=== PATIENT | female | born 1940 | race Caucasian/White ===

== ENCOUNTER 2018-07-29 12:54 | Outpatient (CLI) | payer MEDICARE | END 2018-07-29 12:55 | disposition home or self-care (01) | LOC: BICMAMMO 12:54 | PROVIDERS: ATTEND Clinical Nurse Specialist Medical-Surgical | DX: Z12.31 Encounter for screening mammogram for malignant neoplasm of breast (principal); M81.0 Age-related osteoporosis without current pathological fracture | CPT/HCPCS: 77063; 77067; 77080 ==

== ENCOUNTER 2019-03-28 09:41 | Outpatient (CLI) | payer MEDICARE ==
--- NOTE | 2019-03-28 11:16 | CT ---
EXAM: Abdomen and pelvic CT scan with contrast: HISTORY: Chronic diarrhea, weight loss, syncope COMPARISON: None FINDINGS: Minimal linear streaky changes particularly in the right base with some poorly defined faint nodules up to 0.5 cm in the right lower lobe, nonspecific. Liver: Unremarkable. Gallbladder:Unremarkable. Pancreas:Unremarkable Spleen:Unremarkable. Adrenal glands:Unremarkable. Kidneys:Nonobstructing bilateral renal calculi.Bilateral renal hypodensities statistically small cyst not completely characterized because of their small size. No evidence for bowel obstruction. Numerous diverticulosis changes within the sigmoid colon Possible 0.3 cm diameter calculus within the urinary bladder versus a punctate calcification within t he posterior bladder wall. No CT evidence for acute appendicitis. No abscess, adenopathy, or abnormal fluid collection within the abdomen or pelvis. IMPRESSION: Nonobstructing bilateral renal calculi and probable bilateral renal cysts. Probable small calculus in the bladder versus a calcific focus in the bladder wall. Sigmoid colon diverticulosis without acute diverticulitis. Small hiatal hernia.
[2019-03-28] MEDS ORDERED: Iopamidol 370 76% 100 ML VIAL ONE (13:40)
== END 2019-03-28 09:42 | disposition home or self-care (01) ==
LOC: BICCT 09:41
PROVIDERS: ATTEND Physician Assistant Medical
DX: K52.9 Noninfective gastroenteritis and colitis, unspecified (principal); R63.4 Abnormal weight loss; R55 Syncope and collapse; N20.0 Calculus of kidney; K57.30 Diverticulosis of large intestine without perforation or abscess without bleeding; K44.9 Diaphragmatic hernia without obstruction or gangrene
CPT/HCPCS: 74177; 82565; Q9967

== ENCOUNTER 2019-11-03 06:34 | Outpatient (CLI) | payer MEDICARE ==
[2019-11-03 12:26] VITALS: BMI 24.5
[2019-11-03 14:11] LABS: #Basophils 0.1 thou/uL (0.0-0.2); #Eosinphils 0.3 thou/uL (0.0-0.7); #Lymphocytes 2.7 thou/uL (1.20-3.40); #Monocytes 0.8 thou/uL (0.11-0.59); #Neutrophils 5.3 thou/uL (1.40-6.50); %Basophils 0.9 % (0.0-1.0); %Eosinophils 2.8 % (0.0-10.0); %Lymphocytes 29.4 % (21.0-51.0); %Monocytes 8.8 % (0.0-10.0); %Neutrophils 58.1 % (42.0-75.0); Mean Corpuscular HGB CONC 31.7 g/dL (32.0-36.0); Mean Corpuscular Hemoglobin 31.2 pg (27.0-31.0); Mean Corpuscular Volume 98.4 fL (78.0-98.0); Mean Platelet Volume 8.5 fL (7.4-10.4); Platelet Count 397 thou/uL (130-400); RBC Distribution Width 12.3 % (11.5-14.5); Red Blood Cell (RBC) Count 3.85 mill/uL (4.20-5.40); White Blood Cell (WBC) Count 9.1 thou/uL (4.8-10.8)
[2019-11-03 14:15] LABS: INR-International Normal Ratio 0.9; Prothrombin Time 12.2 SEC (12.0-14.7)
[2019-11-03 14:26] LABS: Bacteria/HPF 2+ HPF (None Seen); Bilirubin Negative (Negative); Blood, Urine Negative (Negative); Clarity Turbid (Clear); Glucose, Urine (Dipstick) Normal (Negative); Leukocyte 250 Leu/uL (Negative); Nitrite Negative (Negative); Protein, Urine (Dipstick) 10 mg/dL (Neg-Trace); Urobilinogen Normal mg/dL (Less than 2)
[2019-11-03 14:35] LABS: Anion Gap 14 mmol/L (10-20); BUN (Urea Nitrogen) 8 mg/dL (9.8-20.1); Calc. Creatinine Clearance 60 mL/min (70-130); Calcium 9.3 mg/dL (7.8-10.44); Carbon Dioxide 22 mmol/L (23-31); Chloride 107 mmol/L (98-107); Estimated GFR-MDRD 77; Glucose 99 mg/dL (83-110); Potassium 3.5 mmol/L (3.5-5.1); Sodium 139 mmol/L (136-145)
[2019-11-03 14:57] LABS: RBC/HPF None Seen HPF (0-3)
--- NOTE | 2019-11-04 17:57 | EKG ---
Test Reason : Blood Pressure : / mmHG Vent. Rate : 071 BPM Atrial Rate : 071 BPM P-R Int : 168 ms QRS Dur : 078 ms QT Int : 424 ms P-R-T Axes : 066 -02 038 degrees QTc Int : 460 ms Normal sinus rhythm Normal ECG No previous ECGs available Confirmed by Charmaine MILLER ([id number]) on 11/04/2019 5:56:40 PM Referred By: VIKAS Confirmed By:Charmaine MILLER
== END 2019-11-03 06:35 | disposition home or self-care (01) ==
LOC: LABBT 06:34
PROVIDERS: ATTEND Orthopaedic Surgery
DX: Z01.818 Encounter for other preprocedural examination (principal); M17.9 Osteoarthritis of knee, unspecified
CPT/HCPCS: 80048; 81001; 85025; 85610; 87081; 93005; 93010

== ENCOUNTER 2019-11-08 05:15 | Day surgery (SDC) | payer MEDICARE ==
[2019-11-08] MEDS ORDERED: Tranexamic Acid 1,000 MG/10 ML VIAL ONE (05:52)
[2019-11-08] MEDS ORDERED: Sodium Chloride 0.9% 100 ML ONE (05:52)
[2019-11-08] MEDS ORDERED: Fentanyl 100 MCG/2 ML VIAL ONE ×3 (06:07→09:13)
[2019-11-08] MEDS ORDERED: Midazolam HCl 2 mg/2 ml Vial ONE (06:16)
[2019-11-08] MEDS ORDERED: Lidocaine 1% (PF) 30 ML VIAL ONE (06:26)
[2019-11-08] MEDS ORDERED: Lidocaine 1% w/Epinephrine 1:100K 20 ML VIAL ONE (06:32)
[2019-11-08] MEDS ORDERED: Bupivacaine 0.25% HCL 30 ML VIAL ONE (06:38)
[2019-11-08] MEDS ORDERED: Levofloxacin 500 mg/D5W 100 ml Premix Bag ONE (06:54)
[2019-11-08] MEDS ORDERED: Ropivacaine HCl/PF 250 ML in Premix Bag 1 BAG NERVE BLCK SCH (07:13)
[2019-11-08] MEDS ORDERED: traMADol HCl 50 MG TAB PO PRN ×3 (07:13→10:39)
[2019-11-08] MEDS ORDERED: Fentanyl 100 MCG/2 ML VIAL SLOW IVP PRN ×3 (07:13→10:39)
[2019-11-08] MEDS ORDERED: Zolpidem Tartrate 5 MG TAB PO PRN ×2 (07:13→10:39)
[2019-11-08] MEDS ORDERED: Ondansetron PF 4 MG/2 ML Vial IVP PRN ×2 (07:13→10:39)
[2019-11-08] MEDS ORDERED: Promethazine HCl 25 MG/ML VIAL IM PRN ×2 (07:13→10:39)
[2019-11-08] MEDS ORDERED: Phenylephrine HCL 10 MG/ML VIAL ONE (07:39)
[2019-11-08 08:19] LABS: Bacteria/HPF None Seen HPF (None Seen); Bilirubin Negative (Negative); Blood, Urine Negative (Negative); Clarity Clear (Clear); Glucose, Urine (Dipstick) Normal (Negative); Leukocyte Negative Leu/uL (Negative); Nitrite Negative (Negative); Protein, Urine (Dipstick) Negative (Neg-Trace); RBC/HPF 0-3 HPF (0-3); Squamous Epithelial None Seen HPF (0-3); Urobilinogen Normal mg/dL (Less than 2); WBC/HPF 0-3 HPF (0-3)
[2019-11-08] MEDS ORDERED: Dexamethasone 20 MG/5 ML VIAL ONE (09:25)
[2019-11-08] MEDS ORDERED: Ondansetron PF 4 MG/2 ML Vial ONE (09:25)
[2019-11-08] MEDS ORDERED: EPINEPHrine 1 MG/ML AMP ONE (09:25)
[2019-11-08] MEDS ORDERED: ePHEDrine/0.9% NaCl/PF SYRINGE 50 mg/10 ml ONE (09:25)
[2019-11-08] MEDS ORDERED: PROPOFOL 200 MG/20 ML VIAL ONE (09:25)
[2019-11-08] MEDS ORDERED: Ropivacaine 0.2% HCl/PF (40 MG/20 ML VIAL) ONE (09:25)
[2019-11-08] MEDS ORDERED: PHENYLEPHRINE-NS 100 MCG/ML 10 ML SYRINGE ONE (09:25)
[2019-11-08] MEDS ORDERED: Ropivacaine 0.5% HCl/PF (150 MG/30 ML VIAL) ONE (09:25)
[2019-11-08] MEDS ORDERED: Lidocaine 1% PF 5 ML VIAL ONE (09:25)
[2019-11-08] MEDS ORDERED: Glycopyrrolate 0.2 MG/ML 5 ML SYRINGE ONE (09:25)
[2019-11-08] MEDS ORDERED: HYDROcodone/Acetaminophen 10/325 mg Tablet PO PRN ×2 (10:39)
[2019-11-08] MEDS ORDERED: diphenhydrAMINE 25 MG CAP PO PRN (10:39)
[2019-11-08] MEDS ORDERED: Acetaminophen 325 MG TAB PO PRN (10:39)
[2019-11-08] MEDS ORDERED: Aspirin 81 mg Enteric Coated Tablet PO SCH (10:45)
--- NOTE | 2019-11-08 11:08 | RAD ---
RIGHT KNEE TWO VIEWS: HISTORY: Total knee postop. FINDINGS: There are recent postop changes of total knee arthroplasty in good position and alignment. Soft tissu e air is present. POS: H
[2019-11-08] MEDS: HYDROcodone/Acetaminophen 10/325 mg Tablet PO PRN (11:37)
[2019-11-08 11:59] VITALS: BMI 24.5
[2019-11-08] MEDS ORDERED: Ketorolac Tromethamine 30 MG/ML VIAL IVP SCH (12:00)
--- NOTE | 2019-11-08 13:53 | OP ---
DATE OF PROCEDURE: 11/08/2019 PREOPERATIVE DIAGNOSIS: Right knee osteoarthritis. POSTOPERATIVE DIAGNOSIS: Right knee osteoarthritis. PROCEDURE PERFORMED: Right total knee arthroplasty. LAWYER PROBATE: Jer Velarde. ANESTHESIOLOGIST: Dr. Carlos. ANESTHESIA: The patient received LMA, single-shot sciatic, adductor canal. ESTIMATED BLOOD LOSS: Less than 100 mL. TOURNIQUET TIME: 63 minutes at 300 mmHg. ANTIBIOTICS: Ancef 2 g, vancomycin 1 g, Levaquin 500. The patient received TXA 1 g. IMPLANTS: [place] [employer] size 3 femur size 2 tibia 9 CS poly and A27 patella. COMPLICATIONS: None. HISTORY OF PRESENT ILLNESS: Ms. Randall is a 79-year-old female, who presented with right knee osteoarthritis. Discussed with the patient the risks and benefits of right total knee arthroplasty including pain, scar, bleeding, infection, damage to vital structures, decreased range of motion and strength, need for further surgery, failure of procedure, continued pain despite surgical intervention, loss of life or limb. The patient understood the risks and benefits of procedure and elected to proceed. DESCRIPTION OF PROCEDURE: Time-out was performed designating the patient's right lower extremity as the operative site based on site, consents, and marking. After time-out, the patient's right lower extremity was prepped and draped in sterile fashion. Tourniquet was brought up and left for 63 minutes. Anterior midline approach, medial arthrotomy was performed, came down, mapped out the distal femur, cut at 9 and 9, 4 degrees anterior slope. We then placed our 3 degree external rotation, guidepin into position. We saw the match about 3 for a perfect fit. We liked overall alignment and fit. Therefore, we cut a size 3 for 3 block cut, size 3 distal femur. We then moved, removing all the osteophytes, placed pickle fork position, exposed the distal tibia. We cut varus 0 , 4 deg of slope 2 and 6 and ultimately went to 4 and 8. We placed laminar dental insurance biller, decompressed the PCL , ensured that osteophytes removed, placed our tray. We had a little bit tight in flexion and extension when we placed our femur tray, therefore we removed to 2 more mm, pinned it in position, liked the overall flexion-extension, everted the patella, it was 20 mm, cut down to about 11 mm, cemented A27 patella. We then drilled our holes for femur, removed all implants. We opened up, cut the keel for the tibia. There was a little area when we were in putting our implant, they got dug by one of our instruments, which we filled with cement . We removed all implants. We then placed our cement. We placed our size 2 tibia, cemented in place, placed our poly, removed excess cement. We placed our cement of the femur and removed excess cement, everted and cemented our patella, removed excess cement washed. We closed the arthrotomy with #2 Vicryl, 2 Quill, #2 Stratafix, 0 Stratafix, 2-0 Stratafix, and glue. The patient will be weightbearing as tolerated. Follow [facility]'s protocol, received preop antibiotics. Job ID: [id number] MTDD
[2019-11-08] MEDS: CEFAZOLIN 2 GM in Premix Bag 1 BAG IVPB SCH ×2 (14:33→22:02)
--- NOTE | 2019-11-08 17:36 | PDOC.HHP ---
Hospitalist HPI - History of Present Illness Right knee pain History of Present Illness: 79 YO F with a PMH of HTN, HLD and DJD who has been experiencing pain and difficulty walking with her right leg. She had gone to see the Ortho Dr who stated she was 'bone on bone' and recommended a knee replacement sx. Pt was scheduled to have a right TKR today. She was seen post her procedure as a consultation for med mgt and currently has no complaints. Hospitalist ROS - Review of Systems Constitutional: denies: fever, chills, sweats, weakness, malaise, other Eyes: denies: pain, vision change, conjunctivae inflammation, eyelid inflammation, redness, other ENT: denies: ear pain, ear discharge, nose pain, nose discharge, nose congestion , mouth pain, mouth swelling, throat pain, throat swelling, other Respiratory: denies: cough, dry, shortness of breath, hemoptysis, SOB with excertion, pleuritic pain, sputum, wheezing, other Cardiovascular: denies: chest pain, palpitations, orthopnea, paroxysmal noc. dyspnea, edema, light headedness, other Gastrointestinal: denies: nausea, vomiting, abdominal pain, diarrhea, constipation, melena, hematochezia, other Genitourinary: denies: dysuria, frequency, incontinence, hematuria, retention, other Musculoskeletal: denies: neck pain, shoulder pain, arm pain, back pain, hand pain, leg pain, foot pain, other Skin: denies: rash, lesions, gaston, bruising, other Neurological: denies: weakness, numbness, incoordination, change in speech, confusion, seizures, other - Medication Medications: Active Medications Generic Name Dose Route Start Last Admin Trade Name Freq PRN Reason Stop Dose Admin Hydrocodone Bitart/Acetaminophen 1 tab 11/08/19 07:13 11/08/19 11:37 [place] 10/325 PO 1 tab Q4H PRN Administration Pain (1-3) Cefazolin Sodium/Dextrose 2 gm 50 mls @ 100 mls/hr 11/08/19 14:00 11/08/19 14 :33 / Device IVPB 11/08/19 22:29 50 mls Q8HR BRITTA Administration Hospitalist History - Past Medical History Cardiac: reports: HTN, Hyperlipidemia - Past Surgical History Past Surgical History: reports: Total Knee Replacement - Social History Alcohol: reports: None Living Situation: Alone, With Family Activity level: independent ambulation - Exam General Appearance: NAD, awake alert Eye: PERRL, anicteric sclera ENT: normocephalic atraumatic, no oropharyngeal lesions, moist mucosa Neck: supple, symmetric, no JVD, no thyromegaly, no lymphadenopathy, no carotid bruit Heart: RRR, no murmur, no gallops, no rubs, normal peripheral pulses Respiratory: CTAB, no wheezes, no rales, no ronchi, normal chest expansion, no tachypnea, normal percussion Gastrointestinal: soft, non-tender, non-distended, normal bowel sounds, no palpable masses, no hepatomegaly, no splenomegaly, no bruit Extremities: no cyanosis, no clubbing, no edema Skin: normal turgor, no lesions, no rashes Neurological: cranial nerve grossly intact, normal sensation to touch, no weakness, no focal deficits, no new deficit Musculoskeletal: normal tone, normal strength, no muscle wasting Musculoskeletal - other findings: Dressing over right knee. Psychiatric: normal affect, normal behavior, A&O x 3 Hospitalist Results - Labs Lab results: Urine Ketones Negative mg/dL (Negative) 11/08/19 07:25 Urine Blood Negative (Negative) 11/08/19 07:25 Urine Nitrite Negative (Negative) 11/08/19 07:25 Ur Leukocyte Esterase Negative Robert/uL (Negative) 11/08/19 07:25 Urine RBC 0-3 HPF (0-3) 11/08/19 07:25 Urine WBC 0-3 HPF (0-3) 11/08/19 07:25 Ur Squamous Epith Cells None Seen HPF (0-3) 11/08/19 07:25 Urine Bacteria None Seen HPF (None Seen) 11/08/19 07:25 Hospitalist H&P A/P - Problem (1) Total knee replacement status Code(s): Z96.659 - PRESENCE OF UNSPECIFIED ARTIFICIAL KNEE JOINT Status: Acute Qualifiers: Laterality: right Qualified Code(s): Z96.651 - Presence of right artificial knee joint Assessment and Plan: Pt is s/p right TKA and is stable. Will f/u with PT and further Ortho orders. Control pain. (2) HTN (hypertension), benign Code(s): I10 - ESSENTIAL (PRIMARY) HYPERTENSION Status: Acute Assessment and Plan: Controlled. Will resume home BP meds. Monitor BP. (3) HLD (hyperlipidemia) Code(s): E78.5 - HYPERLIPIDEMIA, UNSPECIFIED Status: Acute Assessment and Plan: Stable. Cont statins. - Plan Plan: PPx: Lovenox. CODE status: Full. Dispo: Cont current mgt. Thanks for the consult, we will follow.
[2019-11-08] MEDS ORDERED: Vancomycin HCl 1 GM in Premix Bag 1 BAG IVPB SCH (20:00)
[2019-11-08] MEDS: Dextrose 5 %-0.45 % NaCl 1,000 ML IV SCH ×2 (20:25→22:03)
[2019-11-08] MEDS: Aspirin 81 mg Enteric Coated Tablet PO SCH (20:26)
[2019-11-08] MEDS: Atorvastatin Calcium 20 MG TAB PO SCH (20:26)
[2019-11-08] MEDS ORDERED: Atorvastatin Calcium 20 MG TAB PO SCH (21:00)
[2019-11-08] MEDS ORDERED: Non-Formulary Item 1 EACH (Trazodone Hcl [Trazodone Hcl] 1 TAB) PO SCH (21:00)
[2019-11-08] MEDS ORDERED: traZODone HCl 50 MG TAB PO SCH (21:00)
[2019-11-08] MEDS: traZODone HCl 50 MG TAB PO SCH (22:02)
[2019-11-09] MEDS: HYDROcodone/Acetaminophen 10/325 mg Tablet PO PRN ×2 (02:20→20:56)
[2019-11-09 08:32] LABS: Hemoglobin 10.3 g/dL (12.0-16.0); Mean Corpuscular HGB CONC 31.9 g/dL (32.0-36.0); Mean Corpuscular Hemoglobin 31.2 pg (27.0-31.0); Mean Corpuscular Volume 97.8 fL (78.0-98.0); Mean Platelet Volume 8.3 fL (7.4-10.4); Platelet Count 322 thou/uL (130-400); RBC Distribution Width 12.2 % (11.5-14.5); Red Blood Cell (RBC) Count 3.29 mill/uL (4.20-5.40); White Blood Cell (WBC) Count 10.9 thou/uL (4.8-10.8)
[2019-11-09] MEDS ORDERED: Lisinopril/Hydrochlorothiazide 20/25 mg Tablet PO SCH (09:00)
[2019-11-09] MEDS ORDERED: Atenolol 25 MG TAB PO SCH (09:00)
[2019-11-09] MEDS ORDERED: Non-Formulary Item 1 EACH (Fenofibrate [Fenofibrate] 1 TAB) PO SCH (09:00)
[2019-11-09] MEDS ORDERED: Amlodipine 5 MG TAB PO SCH (09:00)
[2019-11-09] MEDS ORDERED: Aspirin Chewable 81 MG TAB PO SCH (09:00)
[2019-11-09] MEDS ORDERED: Bupropion 150 MG XL TAB PO SCH (09:00)
[2019-11-09] MEDS: Atenolol 25 MG TAB PO SCH (09:32)
[2019-11-09] MEDS: Amlodipine 10 MG TAB PO SCH ×2 (09:32→16:15)
[2019-11-09] MEDS: Bupropion 150 MG XL TAB PO SCH (09:32)
[2019-11-09] MEDS: Ferrous Gluconate 324 MG TAB PO SCH ×2 (09:33→18:05)
[2019-11-09] MEDS: Dextrose 5 %-0.45 % NaCl 1,000 ML IV SCH ×2 (09:33→19:34)
[2019-11-09] MEDS: Multivitamin W/ Minerals 1 TAB PO SCH (09:34)
[2019-11-09] MEDS: Aspirin 81 mg Enteric Coated Tablet PO SCH ×2 (09:34→20:59)
[2019-11-09] MEDS: Lisinopril/Hydrochlorothiazide 20/25 mg Tablet PO SCH (09:34)
[2019-11-09] MEDS: Senokot S 8.6-50 MG TAB PO SCH ×2 (09:35→20:59)
--- NOTE | 2019-11-09 15:21 | PRG ---
DATE OF SERVICE: 11/09/2019 SUBJECTIVE: The patient is seen and examined at bedside. She does not have much complaints to offer. Her pain is under good control. She did her PT session. OBJECTIVE: VITAL SIGNS: Blood pressure is 116/68, pulse is 71, temperature is 97.9, respirations 18, and O2 saturation is 100% on 2 L by nasal cannula. HEENT: Head is atraumatic and normocephalic. Sclerae are nonicteric. LUNGS: Clear. HEART: S1 and S2 normal. No S3. No S4. ABDOMEN: Soft and nontender. EXTREMITIES: The right knee with small dressing on the top of the knee with mild swelling around the area. NEUROLOGIC: She is alert and oriented x4. There is no any sensory or motor deficits present. Cranial nerves are intact. LABORATORY DATA: White count of 10.9, hemoglobin 10.3, hematocrit 32.2, and platelet count is 322,000. IMPRESSION: 1. Hypertension, well controlled. 2. Status post total knee replacement on the right side. 3. Hyperlipidemia. PLAN: Plan is to continue current regimen with; 1. Aspirin 81 mg twice a day. 2. Amlodipine 10 mg once a day. 3. Atenolol 25 mg daily. 4. Atorvastatin 20 mg at bedtime. 5. Bupropion 150 mg daily. 6. Fenofibrate 145 mg daily. 7. Ferrous gluconate 324 mg twice a day. 8. Hydrocodone bitartrate/APAP 1 to 2 tablets q.4 hours p.r.n. as needed. 9. Lisinopril/hydrochlorothiazide one a day. 10. Multivitamin one a day. 11. Zolpidem 5 mg at bedtime as needed. Job ID: [id number]
[2019-11-09] MEDS: Fenofibrate Nanocrystallized 145 MG TAB PO SCH (16:15)
[2019-11-09] MEDS: traZODone HCl 50 MG TAB PO SCH (20:59)
[2019-11-09] MEDS: Atorvastatin Calcium 20 MG TAB PO SCH (20:59)
[2019-11-10] MEDS: HYDROcodone/Acetaminophen 10/325 mg Tablet PO PRN ×2 (03:27→09:26)
[2019-11-10] MEDS: Dextrose 5 %-0.45 % NaCl 1,000 ML IV SCH ×2 (03:28→16:49)
[2019-11-10 06:16] LABS: Mean Corpuscular HGB CONC 31.9 g/dL (32.0-36.0); Mean Corpuscular Volume 97.3 fL (78.0-98.0); Mean Platelet Volume 8.5 fL (7.4-10.4); Platelet Count 290 thou/uL (130-400); RBC Distribution Width 12.3 % (11.5-14.5); Red Blood Cell (RBC) Count 3.22 mill/uL (4.20-5.40)
[2019-11-10] MEDS: Ferrous Gluconate 324 MG TAB PO SCH (08:37)
[2019-11-10] MEDS: Lisinopril/Hydrochlorothiazide 20/25 mg Tablet PO SCH (08:38)
[2019-11-10] MEDS: Aspirin 81 mg Enteric Coated Tablet PO SCH (08:39)
[2019-11-10] MEDS: Multivitamin W/ Minerals 1 TAB PO SCH (08:39)
[2019-11-10] MEDS: Atenolol 25 MG TAB PO SCH (08:39)
[2019-11-10] MEDS: Bupropion 150 MG XL TAB PO SCH (08:39)
[2019-11-10] MEDS: Amlodipine 10 MG TAB PO SCH (08:41)
[2019-11-10 08:47] VITALS: BP 138/57
[2019-11-10 08:55] VITALS: TEMP 98.1
[2019-11-10] MEDS: Fenofibrate Nanocrystallized 145 MG TAB PO SCH (09:32)
[2019-11-10] MEDS: Senokot S 8.6-50 MG TAB PO SCH (10:29)
[2019-11-15] MEDS ORDERED: Alendronate Sodium 70 mg Tablet PO SCH (09:00)
== END 2019-11-10 13:14 | disposition home or self-care (01) ==
LOC: SDC 05:15 → SURG B 06:50 → SDC 11-10 13:14
PROVIDERS: ATTEND Orthopaedic Surgery
PROC: 0SRC0J9 Replacement of Right Knee Joint with Synthetic Substitute, Cemented, Open Approach (ICD-10-PCS; principal; 2019-11-08)
DX: M17.11 Unilateral primary osteoarthritis, right knee (principal); I10 Essential (primary) hypertension; E78.5 Hyperlipidemia, unspecified; Z79.82 Long term (current) use of aspirin; Z79.83 Long term (current) use of bisphosphonates; Z79.899 Other long term (current) drug therapy; Z88.8 Allergy status to other drugs, medicaments and biological substances
CPT/HCPCS: 27447; 73560; 81001; 85027; 97110; 97116 ×3; 97139 ×3; 97150 ×2; 97530 ×2; 98962 ×2; C1713; C1776; 36415; J0171; J0690; J1100; J1956; J2001; J2250; J2370; J2405; J2704; J2795; J3010; J3370; J3490; S0020

== ENCOUNTER 2021-12-31 02:43 | Emergency (ER) | payer MEDICARE ==
[2021-12-31] MEDS ORDERED: Acetaminophen 500 MG TAB ONE (03:48)
[2021-12-31] MEDS ORDERED: Fluorescein Opthalmic Strip ONE (04:42)
[2021-12-31] MEDS ORDERED: Proparacaine 0.5% Opth 15 ML BOT ONE (04:42)
== END 2021-12-31 05:18 | disposition short-term general hospital (02) ==
LOC: ERS 02:43
DX: S02.32XA Fracture of orbital floor, left side, initial encounter for closed fracture (principal); S05.32XA Ocular laceration without prolapse or loss of intraocular tissue, left eye, initial encounter; I49.1 Atrial premature depolarization; I10 Essential (primary) hypertension; E78.5 Hyperlipidemia, unspecified; E78.00 Pure hypercholesterolemia, unspecified; W01.198A Fall on same level from slipping, tripping and stumbling with subsequent striking against other object, initial encounter; Y93.01 Activity, walking, marching and hiking; Z87.19 Personal history of other diseases of the digestive system
CPT/HCPCS: 70450; 70486; 71045; 72125; 93005

== ENCOUNTER 2022-05-20 07:33 | Outpatient (CLI) | payer MEDICARE ==
[2022-05-20] MEDS ORDERED: Iopamidol 370 76% 100 ML VIAL ONE (08:00)
== END 2022-05-20 07:34 | disposition home or self-care (01) ==
LOC: CT 07:33
PROVIDERS: ATTEND Internal Medicine
DX: J95.89 Other postprocedural complications and disorders of respiratory system, not elsewhere classified (principal); J98.11 Atelectasis; T81.10XA Postprocedural shock unspecified, initial encounter; J18.1 Lobar pneumonia, unspecified organism
CPT/HCPCS: 71260; 82565; Q9967

== ENCOUNTER 2022-05-27 10:18 | Emergency (ER) | payer MEDICARE ==
[2022-05-27 11:08] LABS: #Basophils 0.1 thou/uL (0.0-0.2); #Eosinphils 0.2 thou/uL (0.0-0.7); #Lymphocytes 1.7 thou/uL (1.20-3.40); #Monocytes 1.1 thou/uL (0.11-0.59); #Neutrophils 13.7 thou/uL (1.40-6.50); %Basophils 0.5 % (0.0-1.0); %Lymphocytes 9.9 % (21.0-51.0); %Monocytes 6.8 % (0.0-10.0); %Neutrophils 81.8 % (42.0-75.0); Hemoglobin 10.7 g/dL (12.0-16.0); Mean Corpuscular HGB CONC 30.9 g/dL (32.0-36.0); Mean Corpuscular Hemoglobin 27.6 pg (27.0-31.0); Mean Corpuscular Volume 89.5 fL (78.0-98.0); Mean Platelet Volume 7.6 fL (7.4-10.4); Platelet Count 596 thou/uL (130-400); Red Blood Cell (RBC) Count 3.88 mill/uL (4.20-5.40); White Blood Cell (WBC) Count 16.7 thou/uL (4.8-10.8)
[2022-05-27 11:31] LABS: ALT (SGPT) 10 U/L (8-55); AST (SGOT) 16 U/L (5-34); Albumin 3.6 g/dL (3.4-4.8); Alkaline Phosphatase 100 U/L (40-110); Anion Gap 16 mmol/L (10-20); BUN (Urea Nitrogen) 17 mg/dL (9.8-20.1); Bilirubin, Total 0.2 mg/dL (0.2-1.2); Calc. Creatinine Clearance 0 mL/min (70-130); Calcium 9.1 mg/dL (7.8-10.44); Carbon Dioxide 22 mmol/L (23-31); Chloride 106 mmol/L (98-107); Estimated GFR 78; Glucose 103 mg/dL (83-110); Potassium 4.1 mmol/L (3.5-5.1); Protein, Total 6.6 g/dL (5.8-8.1); Sodium 140 mmol/L (136-145)
== END 2022-05-27 13:08 | disposition home or self-care (01) ==
LOC: ERS 10:18
DX: R19.7 Diarrhea, unspecified (principal); R53.1 Weakness; E78.5 Hyperlipidemia, unspecified; I10 Essential (primary) hypertension
CPT/HCPCS: 36415; 80053; 85025; 96360; 96361